=== PATIENT | female | born 1980 | race American Indian/Alaskan Native ===

== ENCOUNTER 2016-10-27 10:32 | Emergency (ER) | payer SELFPAY ==
[2016-10-27 11:47] LABS: Basophils % (Auto) 0.7 % (0.0-1.8); Eosinophils % (Auto) 0.8 % (0.0-4.3); Hematocrit 40.1 % (30.3-42.9); Hemoglobin 12.7 gm/dl (10.1-14.3); Mean Corpuscular HGB Conc 32 % (30-34); Mean Corpuscular Hemoglobin 27 pg (28-32); Mean Corpuscular Volume 86 fl (79-97); Platelet Count 298 K/mm3 (140-440); Red Blood Count 4.66 M/mm3 (3.65-5.03); Red Cell Distribution Width 13.7 % (13.2-15.2); White Blood Count 7.3 K/mm3 (4.5-11.0)
[2016-10-27 11:55] LABS: Bilirubin,Urine NEG (Negative); Blood,Urine LG (Negative); Ketones,Urine NEG (Negative); Leukocyte Esterase,Urine NEG (Negative); Mucus,Urine FEW /HPF; Nitrite,Urine NEG (Negative); Protein,Urine <15 mg/dL mg/dL (Negative); Urobilinogen,Urine < 2.0 mg/dL (<2.0); WBC,Urine < 1.0 /HPF (0.0-6.0)
--- NOTE | 2016-10-27 20:35 | Ultrasound Report ---
FINAL REPORT EXAM: US OB TRANSVAGINAL HISTORY: pain and bleeding TECHNIQUE: Transabdominal and transvaginal sonography of the pelvis. PRIORS: None. FINDINGS: Uterus enlarged, measuring 14.4 x 10.6 x 11.5 cm, has diffusely heterogeneous echogenicity and multiple fibroids, largest measuring 6.3 x 4.5 x 5.4 cm, limiting evaluation somewhat. There is a single, intrauterine containing yolk sac and pole, with crown-rump length measuring 7 mm. Ultrasound estimated gestational age is 6 weeks 2 days. Ultrasound estimated date of confinement is 20 June 2017. heart motion is not confidently detected. Right ovary measures 4.6 x 3.4 x 3.0 cm. The left ovary is not confidently identified by the respiratory care technician. Remainder of uterus and adnexa grossly unremarkable. IMPRESSION: 1. Limited examination. Intrauterine of uncertain viability. Correlation with serial beta-hCG levels and follow-up ultrasound may help in further evaluation. 2. Leiomyomatous change in the uterus.
--- NOTE | 2016-10-27 20:36 | Ultrasound Report ---
FINAL REPORT EXAM: US OB \T\lt; = 14 WEEKS FETUS HISTORY: pain and bleeding TECHNIQUE: Transabdominal and transvaginal sonography of the pelvis. PRIORS: None. FINDINGS: Uterus enlarged, measuring 14.4 x 10.6 x 11.5 cm, has diffusely heterogeneous echogenicity and multiple fibroids, largest measuring 6.3 x 4.5 x 5.4 cm, limiting evaluation somewhat. There is a single, intrauterine containing yolk sac and pole, with crown-rump length measuring 7 mm. Ultrasound estimated gestational age is 6 weeks 2 days. Ultrasound estimated date of confinement is 20 June 2017. heart motion is not confidently detected. Right ovary measures 4.6 x 3.4 x 3.0 cm. The left ovary is not confidently identified by the lab support technician. Remainder of uterus and adnexa grossly unremarkable. IMPRESSION: 1. Limited examination. Intrauterine of uncertain viability. Correlation with serial beta-hCG levels and follow-up ultrasound may help in further evaluation. 2. Leiomyomatous change in the uterus.
--- NOTE | 2016-10-27 21:37 | Emergency Department Report ---
ED General Adult HPI - General Chief complaint: Vaginal Bleeding Stated complaint: 6WKS PREG/VAG BLEED Time Seen by Provider: 10/27/16 21:18 Source: patient Mode of arrival: Ambulatory Limitations: No Limitations - History of Present Illness Initial comments: PT states she is 6 weeks and 2 day . PT states this is her first . PT has not seen well surveying engineer yet. PT states today while at work, she had vaginal bleeding. PT states it was heavier than spotting, it was like a period. PT states she passed some clots. PT states she has a hx of uterine fibroids. PT states since coming to the ED, her bleeding has slowed. MD Complaint: bleeding in early -: Sudden Quality: other (abd fullness ) Consistency: now resolved Improves with: other (being in ED for 11 hours) Associated Symptoms: denies: fever/chills, nausea/vomiting Treatments Prior to Arrival: none - Related Data Allergies Allergy/AdvReac Type Severity Reaction Status Date / Time amoxicillin Allergy Hives Verified 10/27/16 11:04 ED Review of Systems ROS: Stated complaint: 6WKS PREG/VAG BLEED Other details as noted in HPI Comment: All other systems reviewed and negative Constitutional: denies: fever Gastrointestinal: denies: abdominal pain Genitourinary: abnormal menses (missed cycle ) ED Past Medical Hx - Past Medical History Previous Medical History?: No - Surgical History Past Surgical History?: Yes Additional Surgical History: fibroids '12 - Social History Smoking Status: Never Smoker Substance Use Type: Alcohol ED Physical Exam - General Limitations: No Limitations General appearance: alert, in no apparent distress - Head Head exam: Present: atraumatic, normocephalic - Eye Eye exam: Present: normal appearance. Absent: conjunctival injection - ENT ENT exam: Present: normal exam - Neck Neck exam: Present: normal inspection, full ROM - Respiratory Respiratory exam: Present: normal lung sounds bilaterally. Absent: respiratory distress - Cardiovascular Cardiovascular Exam: Present: regular rate, normal rhythm, normal heart sounds - GI/Abdominal GI/Abdominal exam: Present: soft. Absent: tenderness - Extremities Exam Extremities exam: Present: normal inspection - Back Exam Back exam: Present: normal inspection. Absent: CVA tenderness (R), CVA tenderness (L) - Neurological Exam Neurological exam: Present: alert, oriented X3, normal gait - Psychiatric Psychiatric exam: Present: normal affect, normal mood - Skin Skin exam: Present: warm, dry, intact, normal color ED Course Vital Signs 10/27/16 10:58 Temperature 98.9 F Pulse Rate 81 Respiratory 18 Rate Blood Pressure 132/76 O2 Sat by Pulse 98 Oximetry - Reevaluation(s) Reevaluation #1: 10/27/16 21:33 PT aware of lab and US findings. PT is aware that she will need close well surveying engineer follow up. 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 PT aware she will need repeat lab work in 48-72 hours. PT advised of pelvic rest. PT has no questions at this time. PT states she is ready for discharge. - Pulse Oximetry Interpretation Digit-Finger Initial Pulse Oximetry Readin Actions Taken: none ED Medical Decision Making - Lab Data Result diagrams: 10/27/16 11:26 - Radiology Data Radiology results: report reviewed pelvic US - IUP yolk sac and pole seen, 6 weeks 2 days multiple fibroids, largest is 6.3x 4.5x 5.4 cm - Differential Diagnosis ectopic, misscarriage, threatened misscarriage. Critical care attestation.: If time is entered above; I have spent that time in minutes in the direct care of this critically ill patient, excluding procedure time. ED Disposition Clinical Impression: Bleeding in early Uterine fibroid Qualifiers: Uterine leiomyoma location: unspecified location Qualified Code(s): D25.9 - Leiomyoma of uterus, unspecified Disposition: DISCHARGED TO HOME OR SELFCARE Is pt being admited?: No Does the pt Need Aspirin: No Condition: Stable Instructions: Threatened Miscarriage (ED), Uterine Fibroids (ED) Additional Instructions: Pelvic rest x 7 days Call your well surveying engineer in the am to arrange follow up care Return to the ED or go to your well surveying engineer for repeat bhcg in 48-72 hours Your bhcg level today is 13, 581 Return to ED if worsening Continue vitamins. Referrals: PRIMARY CARE, [Primary Care Provider] - 3-5 Days Forms: Work/School Release Form(ED) Time of Disposition: 21:36
[2016-10-27 21:51] VITALS: BP 117/68
== END 2016-10-27 21:51 | disposition home or self-care (01) ==
LOC: ED 10:32
DX: O20.9 Hemorrhage in early pregnancy, unspecified (principal); D25.9 Leiomyoma of uterus, unspecified; Z88.1 Allergy status to other antibiotic agents; Z3A.01 Less than 8 weeks gestation of pregnancy
CPT/HCPCS: 36415; 76801; 76817; 81001; 84702; 85025; 86850; 86900; 86901